=== PATIENT | female | born 1940 | race Caucasian/White ===

== ENCOUNTER 2024-06-21 14:48 | Inpatient (IN) | payer MEDICARE, SELFPAY ==
[2024-06-21] VITALS (8 sets, daily range): BP systolic 97–116; BP diastolic 61–75; BMI 19.3
--- NOTE | 2024-06-21 15:02 | HPS.HSE ---
Family Physician
-
Family Physician: Dago Short, DO
Chief Complaint
-
Short of breath
History of Present Illness
83-year-old with past medical history for chronic kidney disease, peripheral artery disease, abdominal aortic aneurysm, hypertension, anxiety was admitted at [facility] with acute hypoxic respiratory failure with new onset CHF as well as
tachycardia. Patient underwent cardiac cath with impression of severe ostial main and moderate to severe ostial right coronary artery disease as the culprit for patient's new onset cardiomyopathy recommended bypass surgery versus percutaneous
coronary intervention at an institution with cardiothoracic surgery backup. Echo with severe mitral regurgitation. At present patient feels much better. She is still on 2 L. Short of breath much improved. Patient denied any lower extremities
edema or weight gain. Patient denied any headache, dizziness, syncope. Patient denied chest pain. Patient denied fever chills, runny nose, congestion, cough. Patient denied any abdominal pain, nausea, vomiting, diarrhea. Patient denied dysuria
hematuria.
Medical History
Past Medical History
Past Medical History: Reports Other
Additional Past Medical History:
Hypertension
Anxiety
Peripheral artery disease
CKD
Abdominal aortic aneurysm
COPD
Past Surgical History: Reports Other
Additional Past Surgical History:
Cholecystectomy
Tonsillectomy
Social History
Tobacco: Former Smoker
Alcohol: Occasional
Drug: None
Personal: Single
Living: Alone
Family History
Family History: Not pertinent
Allergies / Home Medications
Allergies reflects when Allergies were last updated in [employer].
Home Medications with original date entered in [employer]
Allergy/Medication List:
nkda
Review of Systems
-
Constitutional: Reports No Symptoms
EENT: Reports No Symptoms
Respiratory: Reports Trouble Breathing
Cardiac: Reports No Symptoms
Abdomen/GI: Reports No Symptoms
: Reports No Symptoms
Musculoskeletal: Reports No Symptoms
Skin: Reports No Symptoms
Neurological: Reports No Symptoms
Endocrine: Reports No Symptoms
Hematologic/Lymphatic: Reports No Symptoms
Psych: Reports No Symptoms
Physical Exam
Physical Exam
General: Well Developed, Well Nourished and No Apparent Distress
HEENT: NormoCephalic, Moist mucous membranes and Atraumatic
Respiratory: Clear
Cardiac: S1/S2 and Regular Rhythm; No Murmur or Rub
GI: Soft, Non Tender, Non Distended and Normal Bowel Sounds; No Organomegaly
Rectal: Deferred by Provider
Musculoskeletal: No Clubbing, No Cyanosis and No Edema
Skin: No Rash
Neuro: AO x 3 and Nonfocal/grossly intact
Psych: Calm
Data Reviewed
-
Lab Data: Labs Reviewed by me
Impression/Plan
-
# Coronary artery disease/severe mitral regurgitation
cardiac cath with severe ostial main and moderate to severe ostial right coronary artery disease as the culprit for patient's new onset cardiomyopathy recommended bypass surgery versus percutaneous coronary intervention
-ECHo with left ventricular systolic function is severely reduced, left ventricular ejection fraction is 25%, grade 2 diastolic dysfunction, severe mitral regurgitation.
-CT surgeon consulted
-Aspirin continued
# Acute hypoxic respiratory failure likely from new onset cardiomyopathy
#new onset CHF
-Echo with EF of 25 percentage
-IV Lasix continued
-Strict PAUL
-Daily weight
-Fluid restriction
-Cardiology consult
# History of CKD
-Continue to monitor the labs
#History of anxiety
-Paxil and trazodone continued
-Wellbutrin continued
#Essential hypertension
-Losartan continued
#COPD
-Breo continued
Nebs as needed for short of breath and anxiety
#Tachycardia
-Obtain EKG
-Toprol XL 25 continued
#Hyperlipidemia
-Statin continued
#DVT prophylaxis
-Heparin subcu
#CODE STATUS
-Full code
--- NOTE | 2024-06-21 16:06 | W.PN.UPDATE ---
Update Note
Progress Note Update
This note serves as an addendum to the H&P by grades 1 6 tutor JAZ Svetlana YAÑEZ
HPI
83F No prior admission to HX CKD, PAD, AAA, HTN TF form [facility]
- Cardiac cath @ [facility] : found severe ostial main and moderate to severe ostial RCA culprit for new onset CM
- recommended CABG vs. PCI with CTS backup.
- Echo with severe mitral regurgitation.
- she was admitted at [facility] for acute Resp distress.
- HX COPD. Not on home O2
- on 2 L NC O2
- CP free
ROS:
denied any lower extremities edema or weight gain.
denied any headache, dizziness, syncope.
denied fever chills, runny nose, congestion, cough.
denied any abdominal pain, nausea, vomiting, diarrhea. Patient denied dysuria hematuria.
Vital Signs
Temp Resp Pulse Ox
98.3 F 16 98
06/21/24 15:23 06/21/24 15:23 06/21/24 15:23
PE
General: No Apparent Distress
HEENT: Moist mucous membranes and Atraumatic
Respiratory: Clear
Cardiac: S1/S2 and Regular Rhythm; No Murmur
GI: Soft, Non Tender, Non Distended and Normal Bowel Sounds
Rectal: Deferred by Provider
Musculoskeletal: No Clubbing, No Cyanosis and No Edema
Skin: No Rash
Neuro: AO x 3 and Nonfocal/grossly intact
Psych: Calm
Data
Lab pending for AM
per [facility] CC:
Severe ostial main and moderate to severe ostial right coronary artery disease as the culprit for patient's new onset cardiomyopathy recommended bypass surgery versus percutaneous coronary intervention
NO PRIOR or hospitalist admission:
ASSESSMENT & PLAN
CAD: severe ostial main and moderate to severe ostial RCA culprit for new onset CM
New onset CM : ECHO: LVEF 25%, grade 2 diastolic dysfunction, severe mitral regurgitation.
Severe mitral regurgitation
-CT surgeon consulted
-Aspirin continued
-IV Lasix continued
-Strict I &O
-Daily weight
-Fluid restriction
- CBC Cardiology consult
- CTS consulted
HX CKD
- Continue to monitor the labs
HX anxiety
-Paxil and trazodone continued
-Wellbutrin continued
Essential hypertension
-Losartan continued
COPD
- stable
- Breo continued
- Nebs as needed for short of breath and anxiety
Tachycardia
-Obtain EKG
-Toprol XL 25 continued
#Hyperlipidemia
-Statin continued
DVT prophylaxis: SQH
Full code
IVU
--- NOTE | 2024-06-21 16:39 | CONSULT.CT ---
Consultation
-
Performing Provider: Yoseph Villegas PA-C
Reason for Consultation: Multivessel CAD, Severe MR, New onset HFrEF
Patient History
History of Present Illness
Patient is an 83-year-old female with a past medical history of chronic kidney disease, COPD without oxygen dependence, hypertension, hyperlipidemia, rheumatoid arthritis, prior CVA approximately 3 years ago with no residual deficits, questionable
new onset diabetes who presented to [facility] with complaints of new onset significant dyspnea on exertion. She was evaluated in the emergency department. She was found to have new onset reduced ejection fraction of approximately 25%
on transthoracic echocardiogram. She was also noted to have severe central mitral regurgitation. Given this finding she underwent ischemic workup with cardiac catheterization. This revealed significant disease was moderate to coronary artery
disease. Given that this is likely the culprit of her new onset heart failure she was recommended for evaluation for possible CABG versus PCI. This prompted transfer to our facility for further evaluation.
Currently the patient is resting comfortably on 2 L of oxygen via nasal cannula. She is accompanied by her 2 daughters at bedside. She denies any prior history of bleeding or clotting disorders, chest radiation or chest surgery, vein stripping or
varicose veins, melena or hematochezia, dysphagia or need for prior esophageal dilation, prior heart history including arrhythmias. She has had rib fractures in the past. She is a prior tobacco user but quit in 1976. She drinks 4 to 5 glasses of
wine per week. She does not use illicit drugs. She lives alone however her 2 daughters are her neighbors. She does not use assist devices at home.
Past Medical History
Chronic kidney disease
COPD without oxygen dependence
New onset heart failure reduced EF
Coronary artery disease
Severe mitral regurgitation, likely functional
Hypertension
Hyperlipidemia
Questionable new onset diabetes (elevated blood glucose in the emergency department. A1c is pending)
Prior CVA without residual deficits
Rheumatoid arthritis on methotrexate
Past Surgical History
Cholecystectomy
Tonsillectomy
Social History
Alcohol: Occasional
Drug: None
Tobacco: Former Smoker (Quit in 1976)
Allergies
No known drug allergies
Home Medications
�Medication �Instructions �Recorded �Confirmed �Type
aspirin 81 mg chewable tablet 81 mg PO DAILY 06/21/24 06/21/24 History
atorvastatin 40 mg tablet (Lipitor) 40 mg PO HS 06/21/24 06/21/24 History
bupropion HCl 75 mg tablet 75 mg PO BID 06/21/24 06/21/24 History
fluticasone furoate 100 1 inh inhalation DAILY 06/21/24 06/21/24 History
mcg-vilanterol 25 mcg/dose
inhalation powder (Breo Ellipta)
furosemide 20 mg tablet (Lasix) 20 mg PO BID 06/21/24 06/21/24 History
losartan 25 mg tablet 12.5 mg PO BID 06/21/24 06/21/24 History
methotrexate 2.5 mg/mL oral 2.5 mg PO QWEEK 06/21/24 06/21/24 History
solution
metoprolol succinate 25 mg 25 mg PO BID 06/21/24 06/21/24 History
tablet,extended release 24 hr
(Toprol XL)
paroxetine HCl 30 mg tablet 30 mg PO DAILY 06/21/24 06/21/24 History
trazodone 100 mg tablet 100 mg PO HS 06/21/24 06/21/24 History
umeclidinium 62.5 mcg-vilanterol 1 inh inhalation DAILY 06/21/24 06/21/24 History
25 mcg/actuation powdr for
inhalation (Anoro Ellipta)
Review of Systems
-
History Source: Patient and Family
General: Reports Fatigue
HEENT: Reports No Symptoms
Respiratory: Reports SOB and REINOSO
Cardiac: Reports No Symptoms
Abdomen/GI: Reports No Symptoms
: Reports No Symptoms
Musculoskeletal: Reports No Symptoms
Skin: Reports No Symptoms
Neurological: Reports No Symptoms
Vascular: Reports No Symptoms
Physical Exam
Vital Signs
Temp 98.3 F 06/21/24 15:23
Temp route: Oral 06/21/24 15:23
Resp Rate 16 06/21/24 15:23
Blood pressure extremity used: Left upper arm 06/21/24 15:23
Position: Lying 06/21/24 15:23
SaO2 98 06/21/24 15:23
Nasal Cannula flow liters per minute 2 06/21/24 15:23
Exam
General: Well Developed, Well Nourished and No Apparent Distress
HEENT: Normocephalic and Anicteric
Neck: Trachea Midline
Respiratory: Clear
Cardiac: S1/S2 and Regular Rhythm
GI: Soft, Non Tender and Non Distended
Rectal: Deferred by Provider
Skin: Warm and Dry
Neuro: Awake and Alert
Psych: Calm
Assessment / Plan
-
1. Multivessel coronary artery disease with left main component: The patient will be evaluated for possible CABG as the definitive revascularization strategy. Given her advanced age and comorbidities she may be high risk. The patient and her
daughter's seem hesitant to undergo formal surgical evaluation at this time. Will discuss the case with Dr. Christopher Duval who will provide definitive recommendations in regards to her surgical candidacy and timing. She will also be evaluated by her
interventional cardiology colleagues to determine whether or not high risk PCI of her left main is an option. This may require Impella support and therefore CT surgery would need to be on backup. We will hold off on open heart surgery workup at
this time until treatment modality is determined. I briefly discussed perioperative expectations with the patient and her family and answered her questions to her satisfaction. Recommend cardiology consultation for further medical management.
Unfortunately she was not transferred with a disc containing her cardiac cath films. We will need to obtain these films to evaluate treatment options.
2. Severe central mitral regurgitation, likely functional
3. New onset heart failure reduced EF: Recommend cardiology consultation
4. COPD, not oxygen dependent
5. Chronic kidney disease
6. Questionable new onset diabetes
7. Hypertension
8. Hyperlipidemia
9. Rheumatoid arthritis on methotrexate
10. Prior CVA 3 years ago without residual deficits
Data Reviewed
-
Channel Specialist: Report Reviewed by me
Echo: Report Reviewed by me
Radiology: Report Reviewed by me
Labs: Labs Reviewed by me
Old Records: Requested and Reviewed
Total Time Spent with Patient (in minutes): 60
[2024-06-21] MEDS: LASIX 20 MG IV (17:48)
--- NOTE | 2024-06-21 18:31 | PTCARENOTE ---
received pt from [facility], aaox3, vss. pt was educated on plan of care and pt verbalized understanding. call preston within reach.
[2024-06-21] MEDS: SYMBICORT 80/4.5 MCG INHALER 2 PUFF INH (19:42)
--- NOTE | 2024-06-21 21:09 | PTCARENOTE ---
Received patient at change of shift. Patient resting in bed, awake, alert, and oriented. BP 109/65, NSR 75, 99% on 2L. Denies SOB or chest discomfort. Pressures soft-- discussed with Ed Wilmer CV PA-- cardiac meds adjusted for evening-- see SEP.
Discussed plan of care with patient. Agrees to call with getting out of bed or worsening SOB. Call preston within reach.
[2024-06-21] MEDS: TOPROL XL 12.5 MG PO (21:17)
[2024-06-21] MEDS: WELLBUTRIN REGULAR RELEASE 75 MG PO (21:17)
[2024-06-21] MEDS: COZAAR PO (21:47)
[2024-06-21] MEDS: TOPROL XL PO (21:47)
[2024-06-21] MEDS: LIPITOR 40 MG PO (22:40)
[2024-06-21] MEDS: DESYREL 100 MG PO (22:40)
[2024-06-22] VITALS (10 sets, daily range): BP systolic 96–119; BP diastolic 49–82; BMI 19.1
[2024-06-22 04:01] LABS: Hematocrit 34.3 % (37.0-47.0); Hemoglobin 10.3 g/dL (12.0-16.0); Mean Corpuscular Hgb 30.4 pg (27.0-31.0); Mean Corpuscular Volume 101.2 fL (81.0-99.0); Mean Platelet Volume 10.7 fL (7.4-10.4); Platelet Count 282 10^3/uL (130-400); Red Blood Cell Count 3.39 10^6/uL (4.20-5.40); Red Cell Dist. Width 14.2 % (11.5-14.5); White Blood Cell Count 10.1 10^3/uL (4.8-10.8)
[2024-06-22 04:18] LABS: Blood Urea Nitrogen 51 mg/dl (7-17); Calcium 8.8 mg/dl (8.4-10.2); Carbon Dioxide 34 mmol/L (22-30); Chloride 99 mmol/L (98-107); Glucose 106 mg/dl (70-99); Magnesium 2.2 mg/dl (1.6-2.3); Potassium 4.3 mmol/L (3.5-5.1); Sodium 140 mmol/L (135-145); eGFR 23.09
[2024-06-22] MEDS: SYMBICORT 80/4.5 MCG INHALER 2 PUFF INH ×2 (07:56→19:15)
[2024-06-22] MEDS: WELLBUTRIN REGULAR RELEASE 75 MG PO ×2 (08:21→20:37)
[2024-06-22] MEDS: TOPROL XL 25 MG PO ×2 (08:21→20:37)
[2024-06-22] MEDS: LOW STRENGTH ASPIRIN 81 MG PO (08:22)
[2024-06-22] MEDS: COZAAR 12.5 MG PO ×2 (08:22→20:38)
[2024-06-22] MEDS: LASIX 20 MG IV ×2 (08:22→16:49)
[2024-06-22] MEDS: PAXIL 30 MG PO (08:22)
--- NOTE | 2024-06-22 09:13 | PTCARENOTE ---
Assumed care at 0700. Patient awake and alert siting on side of bed. Room air POX 86%, placed on 2 liters NC 96%, lungs CTA. SR on telemetry, denies pain, call preston in reach
--- NOTE | 2024-06-22 11:57 | CON.CAR ---
Consultation
Consultation Request
Date/Time Consultation Requested: 06/22/24
Date/Time Consultation Performed: 06/22/24
Requesting Provider: Dr. Christopher Duval
Performing Provider: Dr. Cedrick Nieto
Reason for Consultation: NSTEMI, severe MR
Medical History
-
Chief Complaint: shortness of breath
History of Present Illness:
83 year old woman with history of CKD (Cr. 2), COPD not on O2, HTN, HLD, RA, CVA w/o residual deficits, ?DM, who presented to [facility] with acute dyspnea. She noted that the night of admission she developed acute onset dyspnea, worse with lying
flat, that did not improve. She denied chest pain/pressure, NV, REBEL. She presented to ED where workup was notable for elevated troponin, TTE with EF 25% and severe central MR, NM lung perfusion with possible PE but LE Dopplers negative. Cardiac
cath was performed and demonstrate low/normal filling pressures, CI 1.7, with severe ostial LM stenosis and moderate ostial RCA stenosis. She was started on GDMT for heart failure. She was transferred to for consideration of high risk MVR/CABG
vs. PCI. She was seen by CT Surgery and felt to be at very high risk for surgery.
Currently the patient is resting comfortably with daughter at bedside. She denies any prior history of bleeding or clotting disorders, chest radiation or chest surgery, melena or hematochezia, dysphagia or need for prior esophageal dilation, prior
heart history including arrhythmias. She is a prior tobacco user but quit in 1976. She drinks 4 to 5 glasses of wine per week. She does not use illicit drugs. She lives alone however her 2 daughters are her neighbors.
Allergies / Home Medications
Allergy/AdvReac Type Severity Reaction Status Date / Time
No Known Allergies Allergy Unverified 06/21/24 16:40
�Medication �Instructions �Recorded �Confirmed �Type
aspirin 81 mg chewable tablet 81 mg PO DAILY Blood Clot 06/21/24 06/21/24 History
Prevention/Tx
atorvastatin 40 mg tablet (Lipitor) 40 mg PO HS High Cholesterol 06/21/24 06/21/24 History
bupropion HCl 75 mg tablet 75 mg PO BID depression/anxiety 06/21/24 06/21/24 History
fluticasone furoate 100 1 inh inhalation DAILY 06/21/24 06/21/24 History
mcg-vilanterol 25 mcg/dose Lung/Breathing Issues
inhalation powder (Breo Ellipta)
furosemide 20 mg tablet (Lasix) 20 mg PO BID Fluid 06/21/24 06/21/24 History
Retention/Swelling
losartan 25 mg tablet 12.5 mg PO BID Blood Pressure 06/21/24 06/21/24 History
methotrexate 2.5 mg/mL oral 2.5 mg PO QWEEK Autoimmune Disorder 06/21/24 06/21/24 History
solution
metoprolol succinate 25 mg 25 mg PO BID Blood Pressure 06/21/24 06/21/24 History
tablet,extended release 24 hr
(Toprol XL)
paroxetine HCl 30 mg tablet 30 mg PO DAILY depression/anxiety 06/21/24 06/21/24 History
trazodone 100 mg tablet 100 mg PO HS sleep 06/21/24 06/21/24 History
umeclidinium 62.5 mcg-vilanterol 1 inh inhalation DAILY 06/21/24 06/21/24 History
25 mcg/actuation powdr for Lung/Breathing Issues
inhalation (Anoro Ellipta)
Physical Exam
Vital Signs
Temp Pulse Resp BP Pulse Ox
36.6 C 83 20 113/65 93
06/22/24 11:00 06/22/24 08:00 06/22/24 11:00 06/22/24 07:21 06/22/24 11:00
Lab Results
06/22/24 03:22
06/22/24 03:22
Physical Exam
General: Other (frail)
Respiratory: Clear
Cardiac: S1/S2 and Regular Rhythm
Skin: Warm and Other (2+ R radial pulse)
Psych: Calm
Impression / Plan
-
This is a 83 year old woman with CKD, COPD, HTN, HLD, ?DM, RA, prior CVA, who presented with new heart failure, severely reduced EF with severe MR, and NSTEMI, found to have severe ostial LM disease and moderate ostial RCA disease. Her presentation
seems most consistent with progressive LV dysfunction and ischemic MR secondary to coronary artery disease. The time frame seems acute given rapid symptom progression and lack of significant LV dilation or thinning. Filling pressures during R/L
heart catheterization were normal and she examines compensated and comfortable. She would be very high risk for open heart surgery given age, frailty, and comorbidities. I reviewed her TTE and cath images personally. Percutaneous revascularization
of the ostial LM and ostial RCA are low-moderate complexity. Despite the LM location and low EF, PCI can likely be accomplished without Impella support given lack of need for prolonged flow occlusion, her current compensated state, and only moderate
right sided disease. I would perform RHC up front to help guide intraprocedural decision making. It is possible that I will elect to stage the RCA given her CKD if concerned about contrast usage. After revascularization, she would be managed with
GDMT and repeat TTE performed at a later date to reassess the MR severity and EF recovery. Based on her TTE images, there is no obvious anatomic contraindication to AKIN, and her MR appears to be a combination of Type 1 due to ischemia and Type III
due to leaflet thickening/MAC. If her MR remained severe despite revascularization and GDMT, PAULINE would be needed at a later date to assess anatomic suitability for AKIN.
I spoke to the patient and daughter and we discussed the risks and benefits of cardiac catheterization and PCI, and the plan for post-revascularization medical management for heart failure and possible future consideration of intervention for her
MR. I quoted a likely 1-3% risk of life threatening complication for her PCI, up to 5% if Impella support is needed. We will arrange for OR back up in the event on a catastrophic complication necessitating surgical rescue.
Other plans:
- continue ASA, statin, metop, and losartan at current doses; further GDMT titration post-PCI
- hold further diuresis
- trend CBC and CMP, order T&S
- check lipids and A1c
- obtain CXR and EKG
Data Reviewed
-
Medical Tests (Nuc Med, Echo etc): Image Personally Visualized and interpreted, Report Reviewed by me, Discussed with Physician and Discussed with Patient
Labs: Labs Reviewed by me
Total Time Spent with Patient (in minutes): 60
--- NOTE | 2024-06-22 13:49 | PTCARENOTE ---
Patient comfortable in chair, weaned to room air 93%, family at bedside
--- NOTE | 2024-06-22 14:47 | W.PN.HOSP.TC ---
Today's Communication/Plan
-
Assessment / Plan
Assessment / Plan
Physical Exam
NAD, resting comfortably in bed, tgemporal wasting, atrophic muscle
Scleral anicteric
Moist mucous membranes
No JVD
CTA bilateral
Normal S1-S2 ELYSIA grade 2/6 with radiation in the axilla
Soft nontender nondistended bowel sounds active
No peripheral pitting edema
Moves extremities spontaneously
AAOx3
MVCAD with Severe MR
HFrEF, acute on chronic, EF 25%, nyha class III-IV
ARF with Hypoxia
CKD stage IV
HTN
Anxiety
COPD
HLD
CTsurgery eval
[facility]
Family dicussion about next steps and best approach
Asa
Hold IV diuretics
BB-long acting
Difficult to start ARB/ARNI/MRA/SLT2i due to renal function
Monitor UOP
Daily weight
Keep K >4
Keep Mg >2
Check lipids and A1c
If planned for high risk PCI with Impella support may need to get nephrology on board and have a discussion about HD need post intervention/near future due to contrast laod
Anticipated Discharge: > 48 hours
Subjective/Interval History
-
Date of Service: June 22, 2024
seen and exained. no new compalints. sitting in bedside chair
family at bedisde
Objective Data
-
Labs:
Laboratory Results
06/22/24
03:22
WBC 10.1
Hgb 10.3 L
Hct 34.3 L
Plt Count 282
Sodium 140
Potassium 4.3
Chloride 99
Carbon Dioxide 34 H
BUN 51 H
Creatinine 2.1 H
Glucose 106 H
Calcium 8.8
Vital Signs:
Vital Signs
Temp Pulse Resp BP Pulse Ox
97.8 F 83 20 103/58 93
06/22/24 11:00 06/22/24 12:30 06/22/24 11:00 06/22/24 11:02 06/22/24 11:00
I&O
06/21/24 06/22/24 06/23/24
06:59 06:59 06:59
Intake Total 480 / 480
Balance 480 / 480
--- NOTE | 2024-06-22 21:19 | PTCARENOTE ---
Received patient at change of shift. Patient resting in bed, awake, alert, and oriented. Denies SOB, CP. BP 107/49, NSR 80s, 94% on room air. Discussed plan of care. Patient verbalized understanding and agreed to call nurse when getting out of bed.
Call preston within reach.
[2024-06-22] MEDS: LIPITOR 40 MG PO (22:39)
[2024-06-22] MEDS: DESYREL 100 MG PO (22:39)
[2024-06-23] VITALS (7 sets, daily range): BP systolic 93–129; BP diastolic 70–78; BMI 18.9
[2024-06-23 04:56] LABS: % Basophils 0.7 % (0-2); % Eosinophils 4.7 % (0-6); % Immature Granulocytes 0.6 % (0-0.5); Absolute Basophils 0.1 10^3/uL (0-0.2); Absolute Eosinophils 0.6 10^3/uL (0-0.7); Absolute Immature Granulocytes 0.1 10^3/uL (0-0.05); Absolute Lymphocytes 1.2 10^3/uL (1.2-3.4); Hematocrit 34.7 % (37.0-47.0); Hemoglobin 11.2 g/dL (12.0-16.0); Mean Corp Hgb Conc. 32.3 g/dL (33.0-37.0); Mean Corpuscular Hgb 31.4 pg (27.0-31.0); Mean Corpuscular Volume 97.2 fL (81.0-99.0); Mean Platelet Volume 10.8 fL (7.4-10.4); Nucleated Red Blood Cells % 0 %; Platelet Count 310 10^3/uL (130-400); Red Blood Cell Count 3.57 10^6/uL (4.20-5.40); White Blood Cell Count 11.9 10^3/uL (4.8-10.8)
[2024-06-23] MEDS: SYMBICORT 80/4.5 MCG INHALER 2 PUFF INH ×2 (07:20→19:17)
[2024-06-23] MEDS: PAXIL 30 MG PO (07:51)
[2024-06-23] MEDS: LOW STRENGTH ASPIRIN 81 MG PO (07:51)
[2024-06-23] MEDS: WELLBUTRIN REGULAR RELEASE 75 MG PO ×2 (07:51→19:31)
[2024-06-23] MEDS: TOPROL XL 25 MG PO ×2 (07:55→19:31)
[2024-06-23 08:56] LABS: ACT-LR - POC 224 Seconds (116-155)
[2024-06-23 09:03] LABS: ACT-LR - POC 227 Seconds (116-155)
[2024-06-23 09:11] LABS: ACT-LR - POC 279 Seconds (116-155)
--- NOTE | 2024-06-23 09:41 | PTCARENOTE ---
report cath pt left for labeling associate [id number].
[2024-06-23 09:58] LABS: Glycohemoglobin (HgbA1c) 5.6 % (4.0-5.6)
[2024-06-23 10:04] LABS: ACT-LR - POC 376 Seconds (116-155)
--- NOTE | 2024-06-23 10:45 | ITS.CL.PN ---
Fire Dispatcher - Procedure Note
Procedure
Procedure Note:
CARDIAC CATHETERIZATION REPORT
Date of Procedure: 06/23/2024
Referring: Dr. Christopher Duval
Indication: NSTEMI, severe LM disease, acute systolic heart failure
PROCEDURE:
1. Right heart catheterization
2. Left heart catheterization
3. Coronary angiography
4. IVUS LM
5. PCI with TASIA of LM
ACCESS:
6 [place] right radial artery (TR band)
5 [place] right antecubital vein (manual pressure)
CATHETERS:
1. 5 [place] balloon wedge
2. 6 [place] JL3.5 guide
3. 6 [place] JR4 guide
HEMODYNAMIC DATA
AO 113/61 (mean 78) mmHg
LV 114/5 (EDP 9) mmHg
RA 2 mmHg
RV 28/-1 (EDP 4) mmHg
PCWP 16 mmHg
PA 45/19 (mean 30) mmHg
SaO2 100%
SvO2 62.6%
CO/CI 3.6/2.4
PVR 3.9 Wood Units
SVR 799 dsc*-5
CORONARY ANGIOGRAPHY
Dominance: right
LM: large vessel with a 80% ostial to proximal stenosis
LAD: large vessel with mild proximal calcific disease and mild disease otherwise
LCx: large vessel with luminal irregularities only
RCA: moderate caliber vessel giving rise to a small RPDA and moderate caliber RPL system. There is severe ostial disease evidenced by complete pressure dampening on engagement with lack of contrast reflux
INTERVENTION - IVUS-guided PCI with TASIA to the left main
Based on RHC demonstrating low filling pressures, 250 cc IVF was given. Heparin was used to achieve ACT>300. The left main was engaged with a JL3.5 guide catheter with care taken to avoid deep vessel engagement and pressure dampening. Runthrough
wires were placed in the distal LCx and distal LAD. IVUS was performed demonstrating severe non-calcific disease with a distal reference vessel diameter of 4.0 mm. Initial lesion preparation was performed with a 3.0x12 mm balloon with full
expansion. Pressure was noted to drop during and after inflation but recovery quickly, suggesting that the patient would be able to tolerate stent delivery and any necessary post-dilation without mechanical support. The 3.0x12 mm balloon as also
used to check proximal and distal stent positioning, and demonstrating that a 15 mm stent would be ideal to cover the entire lesion back to the ostium without entering the LAD. A 4.0x15 mm Tarpley Saucier TASIA was selected and deployed at 12 park with
full expansion. IVUS was performed and demonstrated mild undersizing of the distal stent, mild under-expansion of the mid-stent, and undersizing of the aorto-ostial proximal stent edge without evidence of significant protrusion into the aorta.
Post-dilation was performed with a 4.5x12 mm NC balloon to 18 park throughout, followed by a 5.0x12 mm NC balloon to 18 park to flare the ostium. Final IVUS demonstrated excellent stent apposition and expansion. Final angiography demonstrate and
outstanding result. The wire and guide were removed and and RCA angiography performed with a JR4 guide with plan to perform iFR of the proximal/ostial RCA. However, there was severe dampening on catheter engagement, suggesting that the lesion is
clearly severe so iFR was not performed. The RCA was deferred given the patient's CKD and contrast usage. The guide was removed and a TR band placed. The patient was loaded with 180 mg Ticagrelor and family updated.
RADIATION:
Radiation dose (mGy): 503
DAP (cm2.Gy): 45
Fluoroscopy time (minutes): 19.8
CONCLUSIONS:
1. 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
2. Left heart catheterization with normal LV filling pressure and no aortic stenosis.
3. Coronary angiography demonstrates high grade ostial-proximal left main disease with non-obstructive disease in the remainder of the left coronary system and severe ostial RCA disease evidenced by severe catheter dampening on engagement.
4. Successful IVUS-guided and optimized PCI of the left main with placement of a 4.0x15 mm Tarpley Saucier TASIA post-dilated to high pressure with a 4.5 mm NC balloon throughout and 5.0 mm NC balloon ostially.
RECOMMENDATIONS:
1. Expectant management after cardiac catheterization via right approach.
2. Post-cath fluid resuscitation with 500 cc IVF.
3. DAPT with ASA/ticagrelor for 1 year.
4. GDMT for HFrEF
5. PRN diuresis
6. Given severe ostial RCA disease and CKD, will stage intervention for either this admission or outpatient pending course.
7. Will need re-evaluation of LVEF and mitral regurgitation after 3 months of revasc and optimal medical therapy
Copy to: Darek Cardoso MD (referring corsets salesperson); Dago Short DO (primary care physician)
Signed: Cedrick Nieto MD, PhD
--- NOTE | 2024-06-23 11:28 | W.PN.HOSP.TC ---
Today's Communication/Plan
-
- follow up cardiology
Assessment / Plan
Assessment / Plan
CVD post op day 1 for PCI of left main artery:
- Cath shows severe ostial LM stenosis and moderate ostial RCA stenosis
- Continue on DAPT with aspirin and ticagrelor
- Continue on atorvastatin
- Continue metoprolol
- Hold off on IV diuretics due to kidney function
- Trend Bmp and CBC
- PT/OT
- Folow up with cardiology about RCA
New onset heart failure reduced EF:
- EF of 25%
- Continue on metoprolol, losartan
- Follow daily weight, I's and O's, fluid restriction, 2 g sodium diet
- Trend creatinine
- Keep K more than 4 and magnesium more than 2
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
- Continue symbicort
- Maintain oxygen between 88-92
- Advise patient to use incentive spirometer
Normocytic anaemia:
- hgb 11.2
- continue to trend
CKD stage IV:
- bmp still pending
Constipation:
- has not had a bowel movement for a couple of days
- Currently on Dulcolax, senna, miralax
Hypertension:
- Continue Losartan
Hyperlipidemia:
- Continue atorvastatin
Depression:
- Continue Paxil, bupropion, and trazodone
Rheumatoid arthritis on methotrexate?
Anticipated Discharge: 24 - 48 hours
Subjective/Interval History
-
Date of Service: June 23, 2024
Patient is an 83-year-old female postoperative day 1 from having a stent placed in the left anterior descending artery. Who was admitted at [facility] with complaints of new onset dyspnea on exertion, they did a transthoracic
echocardiogram and found ejection fraction of 25%, she then underwent an cath which showed severe central regurgitation, right coronary stenosis and severe left main disease. He was recommended for possible CABG versus PCI and then was transferred
to [facility].
Objective Data
-
Labs:
Laboratory Results
06/23/24 06/23/24
04:15 05:53
WBC 11.9 H
Hgb 11.2 L
Hct 34.7 L
Plt Count 310
Sodium Cancelled Pending
Potassium Cancelled Pending
Chloride Cancelled Pending
Carbon Dioxide Cancelled Pending
BUN Cancelled Pending
Creatinine Cancelled Pending
Glucose Cancelled Pending
Calcium Cancelled Pending
Total Bilirubin Cancelled Pending
AST Cancelled Pending
ALT Cancelled Pending
Alkaline Phosphatase Cancelled Pending
Vital Signs:
Vital Signs
Temp Pulse Resp BP Pulse Ox
98.4 F 81 16 112/72 93
06/23/24 04:18 06/23/24 07:55 06/23/24 07:22 06/23/24 07:55 06/23/24 07:22
I&O
06/22/24 06/23/24 06/24/24
06:59 06:59 06:59
Intake Total 480 / 480
Balance 480 / 480
Review of Systems
-
Constitutional: Denies Fever or Fatigue
EENT: Denies Blurry Vision
Respiratory: Denies Cough
Cardiac: Reports Chest Pain; Denies Palpitations or Syncope
Abdomen/GI: Denies Abdominal Pain, Nausea, Vomiting, Diarrhea or Constipated
Musculoskeletal: Reports Joint Pain
Physical Exam
-
Respiratory: Decreased Breath Sounds (b/l)
GI: Soft and Nontender
Musculoskeletal: Edema, Right Lower Extrem and Edema, Left Lower Extrem
Neuro: Awake and Alert
Data Reviewed
-
Medical Tests (Nuc Med, Echo etc): Image personally visualized and interpreted and Discussed with Physician
Labs: Labs Reviewed by me and Discussed with Physician
--- NOTE | 2024-06-23 11:30 | PTCARENOTE ---
pt back from airport maintenance laborer. right brachial site cdi, right radial band in place cdi. pt is sr on the monitor, hr in the 70s, vss. pt offers no complaints at this time. pt educated on plan of care and pt verbalized understanding. daughter at bedside.
call preston within reach.
--- NOTE | 2024-06-23 12:10 | W.PN.CD ---
Today's Communication / Plan
-
cont. current doses of GDMT
DAPT with asa/ticag
monitor renal function, volume status
possible discharge tomorrow with outpatient GDMT titration and RCA intervention
Impression / Plan
-
This is a 83 year old woman with CKD, COPD, HTN, HLD, ?DM, RA, prior CVA, who presented with new heart failure, severely reduced EF with severe MR, and NSTEMI, found to have severe ostial LM disease and moderate ostial RCA disease. Now status post
PCI to the LM 06/23/24.
# CAD s/p LM PCI
- ticag/asa for 1 year
- high intensity statin for goal LDL<55
- metop
- post cath fluids for normal filling pressures to prevent contrast induced AMBROSE, will trend renal function closely
- stabed revasc of ostial RCA either this admissino or as outpatient
# HFrEF
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
- cont. metop/losartan at current doses today, will titrate GDMT as tolerate and pending Cr stability
# severe MR
- central, likely combination fo type III and type I
- will repeat TTE after 3 months of GDMT/revasc and consider AKIN workup if still severe/symptomatic
Subjective: feeling well post-PCI; family updated
Physical Exam
Vital Signs/Labs
Vital Signs
Temp Pulse Resp BP Pulse Ox
36.9 C 81 16 112/72 93
06/23/24 04:18 06/23/24 07:55 06/23/24 07:22 06/23/24 07:55 06/23/24 07:22
06/22/24 06/23/24 06/24/24
06:59 06:59 06:59
Actual Weight 50.4 kg
06/23/24 04:15
Magnesium 2.2 mg/dl (1.6-2.3) 06/22/24 03:22
Triglycerides Cancelled 06/23/24 04:15
LDL Cholesterol, Calc Cancelled 06/23/24 04:15
VLDL Cholesterol, Calc Cancelled 06/23/24 04:15
HDL Cholesterol Cancelled 06/23/24 04:15
Physical Exam
Constitutional: No acute distress
Cardiovascular: Rhythm & rate is regular
Respiratory: Respiratory effort normal
Neuro/Psych: AO x 3
Data Reviewed
-
Date of Service: June 23, 2024
Medical Decision Making: Reviewed Test Results
Labs: Labs Reviewed by me
[2024-06-23] MEDS: NSS 1000 IV (12:37)
[2024-06-23] MEDS: COZAAR PO (12:37)
[2024-06-23] MEDS: LASIX IV (12:45)
--- NOTE | 2024-06-23 13:32 | W.PN.UPDATE ---
Update Note
Progress Note Update
I saw and evaluated the patient. I reviewed the resident�s note and agree with findings and plan as documented in the resident�s note.
Currently denies chest pain or shortness of breath
Gen: NAD, AAOx3, appears chronically ill.
Eyes: EOMI, PERRLA, no scleral icterus.
Neck: supple.
CV: RRR, +S1/S2, no m/r/g.
Resp: CTAB, no rales, wheezes, or rhonchi.
Abd: +BS, soft, NT, ND
Skin: No rashes.
Neuro: CN 2-12 intact, non-focal.
Psych: Normal mood and affect.
CXR: No acute cardiopulmonary process.
CAD/NSTEMI:
-transferred from [facility] s/p cardiac cath with severe ostial LM and moderate to severe ostial RCA culprit for new onset HFrEF (EF 25%) for consideration of high risk MVR/CABG vs PCI
-seen by CT surgery, too high risk for CABG
-cath today with single stent to LM
-case discussed with cardiology. Plan is for stenting to the RCA on June 26, 2024 versus discharge tomorrow with RCA stenting at a later date.
-cont ASA/statin/BB/ARB/Brilinta
Other problems:
CKD4, baseline Cr around 2
COPD, not on O2 at baseline
Essential HTN: cont BB/ARB
HLD: cont statin
RA
h/o CVA: cont statin/ASA, now on Brilinta
Total time spent on today's encounter was 50 minutes which included time spent in counseling the patient/family regarding diagnosis and treatment plan as listed above, goals of care, and symptom management. Case was discussed with nursing staff,
specialists, and care coordinators/case management. All labs and imaging personally reviewed by me. Remainder the time spent in detailed review of previous records, lab data, imaging, and other medical provider documentation.
--- NOTE | 2024-06-23 13:56 | CM ---
Reviewed chart. Met with Mrs. Lux and here daughter to review discharge plans. She states prior to admission she resides alone. She states her one daughter resides next door and the other daughter resides across the street. She states she is
planning on staying with her daughter across the street when she goes home. Her daughter resides in a two story home with two steps to enter. Her daughter has a bedroom/bathroom on the first floor where Mrs. Lux will stay. She states prior to
admission she was independent with ambulation and adls. She states she does not have any DME in the home. She states she has a prescription plan and uses [facility]. Telephone call to [employer], to check on co-pay for Brilinta
90 mg po bid. Her co-pay would be $113.00 a month. She can use the one month free coupon. Placed the one month free coupon in her red discharge folder. Reviewed co-pay with Mrs. Lux and daughter the co-pay and they are agreeable to the co-pay.
[facility] does not have it in stock and would need to be ordered. Medical work-up in progress. The discharge plan is to return home with her daughter when medically stable.
[2024-06-23] MEDS: BRILINTA 90 MG PO (19:31)
[2024-06-23] MEDS: COZAAR 12.5 MG PO (19:32)
[2024-06-23] MEDS: DESYREL 100 MG PO (23:29)
[2024-06-23] MEDS: LIPITOR 40 MG PO (23:29)
--- NOTE | 2024-06-23 23:49 | PTCARENOTE ---
Rec'd pt at change of shift. Pt in NSR, VSS, and AAO*3. Pt denies any pain or discomfort. Pt with R radial and brachial site dressings CDI. Pt agreed to limb restrictions. Pt agree to call for staff assistance before ambulating and now resting
with call preston in reach. Plan of care ongoing.
[2024-06-24 04:12] VITALS: BP 117/68
[2024-06-24 04:27] VITALS: BMI 19.2
[2024-06-24 04:40] LABS: Hematocrit 33.4 % (37.0-47.0); Hemoglobin 10.3 g/dL (12.0-16.0); Mean Corp Hgb Conc. 30.8 g/dL (33.0-37.0); Mean Corpuscular Hgb 30.9 pg (27.0-31.0); Mean Corpuscular Volume 100.3 fL (81.0-99.0); Mean Platelet Volume 10.4 fL (7.4-10.4); Platelet Count 254 10^3/uL (130-400); Red Blood Cell Count 3.33 10^6/uL (4.20-5.40); Red Cell Dist. Width 14.1 % (11.5-14.5); White Blood Cell Count 11.2 10^3/uL (4.8-10.8)
[2024-06-24 05:10] LABS: Blood Urea Nitrogen 45 mg/dl (7-17); Carbon Dioxide 29 mmol/L (22-30); Chloride 103 mmol/L (98-107); Estimated Creatinine Clearance 18 ml/min; Glucose 108 mg/dl (70-99); Potassium 4.3 mmol/L (3.5-5.1); Sodium 139 mmol/L (135-145); eGFR 26.04
[2024-06-24 07:23] VITALS: BP 96/57
[2024-06-24] MEDS: SYMBICORT 80/4.5 MCG INHALER 2 PUFF INH (07:52)
[2024-06-24] MEDS: COZAAR PO (08:13)
[2024-06-24] MEDS: TOPROL XL PO (08:14)
[2024-06-24] MEDS: WELLBUTRIN REGULAR RELEASE 75 MG PO (08:36)
[2024-06-24] MEDS: PAXIL 30 MG PO (08:36)
[2024-06-24] MEDS: LOW STRENGTH ASPIRIN 81 MG PO (08:36)
[2024-06-24] MEDS: BRILINTA 90 MG PO (08:36)
[2024-06-24 08:47] LABS: ACT-LR - POC > 397 Seconds (116-155)
--- NOTE | 2024-06-24 09:23 | W.PN.UPDATE ---
Addendum entered and electronically signed by Jan Bedoya MD 06/24/24 13:52:
Total time spent on d/c = 40 min. This included today's physical exam, progress note, review of laboratory and diagnostic data, preparation of discharge documents and prescriptions, and discussions about the pt's hospital course and discharge plan
with the patient and other medical pathology teacher involved in the patient's care.
Addendum entered and electronically signed by Jan Bedoya MD 06/24/24 13:39:
Acute HFrEF
Original Note:
Update Note
Progress Note Update
I saw and evaluated the patient. I reviewed the resident�s note and agree with findings and plan as documented in the resident�s note.
Currently denies chest pain or shortness of breath.
Gen: NAD, AAOx3, appears chronically ill.
Eyes: EOMI, PERRLA, no scleral icterus.
Neck: supple.
CV: remains RRR, +S1/S2, no m/r/g.
Resp: remains CTAB, no rales, wheezes, or rhonchi.
Abd: remains +BS, soft, NT, ND
Skin: No rashes.
Neuro: CN 2-12 intact, non-focal.
Psych: Normal mood and affect.
CXR: No acute cardiopulmonary process.
CAD/NSTEMI:
-transferred from [facility] s/p cardiac cath with severe ostial LM and moderate to severe ostial RCA culprit for new onset HFrEF (EF 25%) for consideration of high risk MVR/CABG vs PCI
-seen by CT surgery, too high risk for CABG
-cath 06/23/24 with single stent to LM
-case discussed with cardiology, can discharge today with RCA stenting at a later date.
-cont ASA/statin/BB/ARB/Brilinta
Other problems:
CKD4, baseline Cr around 2
COPD, not on O2 at baseline
Essential HTN: cont BB/ARB
HLD: cont statin
RA
h/o CVA: cont statin/ASA, now on Brilinta
Medically cleared for discharge.
--- NOTE | 2024-06-24 10:44 | PN.CDI ---
CDI
- -
CDI:
Physician Documentation Request
Admit Date: 06/21/24 14:48
Dear Doctor Tigist,
Patient admitted with CAD.
06/21 H&P: 'new onset CHF -Echo with EF of 25 percentage -IV Lasix continued'
06/23 Hospitalist PN: 'New onset heart failure reduced EF:
- EF of 25%
- Continue on metoprolol, losartan
- Follow daily weight, I's and O's, fluid restriction, 2 g sodium diet'
Clarify which of the following accurately represents the acuity of the HFrEF. Possible options might include:
____ Acute
____ Chronic stable condition
____ Other
Use of terms such as suspected, likely, concern for, or probable (associated with a specific diagnosis that is being evaluated, monitored, or treated as if it exists) are acceptable and can be coded in the inpatient setting, when documented at the
time of discharge.
Thank you,
Mary Lou Paniagua RN, BSN
CDI Specialist
Available via [employer] text
Please use your independent medical judgment in providing your response.
--- NOTE | 2024-06-24 10:54 | W.PN.HOSP.TC ---
Today's Communication/Plan
-
- discharge patient
Assessment / Plan
Assessment / Plan
CVD post op day 2 for PCI of left main artery:
- Pt will follow up for ultrasound outpatient and outpatient RCS stent per cardiology
- Cath shows severe ostial LM stenosis and moderate ostial RCA stenosis
- Continue on DAPT with aspirin and ticagrelor
- Continue on atorvastatin
- Continue metoprolol
- Hold off on IV diuretics due to kidney function
- Trend Bmp and CBC
- PT/OT
New onset heart failure reduced EF:
- EF of 25%
- Continue on metoprolol, losartan
- Follow daily weight, I's and O's, fluid restriction, 2 g sodium diet
- Trend creatinine
- Keep K more than 4 and magnesium more than 2
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
- Continue symbicort
- Maintain oxygen between 88-92
- Advise patient to use incentive spirometer
Normocytic anaemia:
- hgb 11.2
- continue to trend
CKD stage IV:
- bmp still pending
Constipation:
- has not had a bowel movement for a couple of days
- Currently on Dulcolax, senna, miralax
Hypertension:
- Continue Losartan
Hyperlipidemia:
- Continue atorvastatin
Depression:
- Continue Paxil, bupropion, and trazodone
Rheumatoid arthritis on methotrexate?
Anticipated Discharge: Today
Subjective/Interval History
-
Date of Service: June 24, 2024
Objective Data
-
Labs:
Laboratory Results
06/24/24
04:22
WBC 11.2 H
Hgb 10.3 L
Hct 33.4 L
Plt Count 254
Sodium 139
Potassium 4.3
Chloride 103
Carbon Dioxide 29
BUN 45 H
Creatinine 1.9 H
Glucose 108 H
Calcium 9.0
Vital Signs:
Vital Signs
Temp Pulse Resp BP Pulse Ox
98.4 F 78 16 96/57 93
06/24/24 07:25 06/24/24 08:14 06/24/24 07:54 06/24/24 08:14 06/24/24 07:54
I&O
06/23/24 06/24/24 06/25/24
06:59 06:59 06:59
Intake Total 960 / 960
Balance 960 / 960
Review of Systems
-
Constitutional: Denies Fever or Fatigue
EENT: Denies Blurry Vision
Respiratory: Denies Cough
Cardiac: Reports Chest Pain; Denies Palpitations or Syncope
Abdomen/GI: Denies Abdominal Pain, Nausea, Vomiting, Diarrhea or Constipated
Musculoskeletal: Reports Joint Pain
Physical Exam
-
Respiratory: Decreased Breath Sounds (b/l)
Cardiac: Regular Rhythm, S1/S2 and Irregular Rhythm
GI: Soft and Nontender
Musculoskeletal: Edema, Right Lower Extrem and Edema, Left Lower Extrem
Neuro: Awake and Alert
Data Reviewed
-
Medical Tests (Nuc Med, Echo etc): Image personally visualized and interpreted and Discussed with Physician
Labs: Labs Reviewed by me and Discussed with Physician
--- NOTE | 2024-06-24 10:57 | W.DCSUMMARY ---
Addendum entered and electronically signed by Jan Bedoya MD 06/24/24 14:57:
Read, reviewed, and agree. See same day progress note for additional details.
Original Note:
Discharge Summary
Discharge Data
Date of Admission: 06/21/24
Date of Discharge: 06/24/24
-
Pending Results: No
Hospital Course
Discharging Physician : Jan Watson
Disposition : Home
Primary care physician : Dr. Dago Short
Principal Discharge diagnosis : Status post day 2 for PCI of left main anterior descending artery
Chronic Discharge diagnosis : New onset heart failure with reduced ejection fraction of 25%, COPD without oxygen dependence, normocytic anemia, CKD stage IV, constipation, hypertension, hyperlipidemia, depression, rheumatoid arthritis
Hospital Course : Patient is an 83-year-old female, full code, postoperative day 2 from having a stent placed in the left anterior descending artery. She was admitted to [facility] with complaints of new onset dyspnea on exertion, dated
transthoracic echocardiogram and found ejection fraction of 25, she then underwent a cath which showed severe central regurgitation, right coronary stenosis and left main severe disease. She then had a stent placed in the left main artery
[facility]. Patient was then placed on DAPT with aspirin 81, ticagrelor and atorvastatin. Lasix is discontinued due to the patient's kidney function and she is only on fluid restriction. Cardiology is planning to see her outpatient to
get RCA stent placed. Repeat TTE after 3 months of GDMT/revascularization. Check CBC/BMP in 1 week.
Heart failure with reduced ejection fraction�follow daily weight, ins and outs, fluid restriction, 2 g sodium diet, trend creatinine, keep potassium more than 4 and magnesium more than 2
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
CKD stage IV-trend BMP and get BMP in 1 week
Hypertension�continue losartan
Hyperlipidemia�continue atorvastatin
Depression�continue Paxil bupropion and trazodone
Important imaging findings :
Procedure findings :
Catheterization report 06/23/2024:
-CONCLUSIONS:
1. 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
2. Left heart catheterization with normal LV filling pressure and no aortic stenosis.
3. Coronary angiography demonstrates high grade ostial-proximal left main disease with non-obstructive disease in the remainder of the left coronary system and severe ostial RCA disease evidenced by severe catheter dampening on engagement.
4. Successful IVUS-guided and optimized PCI of the left main with placement of a 4.0x15 mm [place]ain [place] TASIA post-dilated to high pressure with a 4.5 mm NC balloon throughout and 5.0 mm NC balloon ostially.
RECOMMENDATIONS:
1. Expectant management after cardiac catheterization via right approach.
2. Post-cath fluid resuscitation with 500 cc IVF.
3. DAPT with ASA/ticagrelor for 1 year.
4. GDMT for HFrEF
5. PRN diuresis
6. Given severe ostial RCA disease and CKD, will stage intervention for either this admission or outpatient pending course.
7. Will need re-evaluation of LVEF and mitral regurgitation after 3 months of revasc and optimal medical therapy
Discharge Plan
-
Patient Disposition: Home (Routine Discharge)
Discharge Diagnosis/Procedures: Coronary Artery disease s/p Left main artery PCI, Heart failure with reduced ejection fraction of 25%, Chronic obstructive pulmonary disease, Chronic Kidney disease stage IV, Hypertension, Hyperlipidemia, depression
Condition: Fair
Diet: Low Cholesterol and 2 Gram Sodium
Additional Diets: fluid restict to 1200cc/day
Activity: No strenuous activity
Driving Restrictions: Not until seen by your Dr
Bathing Restrictions: None
Blood Work: BMP, CBC on Wednesday 06/27, script from PCP- results to Dr. Nieto & Dr. Short
Other Services: PT and Cardiac Rehab
Specialty Instructions: Weigh Daily- Call MD for wt gain/loss 3 lbs overnight/5 lbs in 1 week
Activity Restrictions/Additional Instructions:
Staged cath for Right Coronary artery- Jul 29 at [facility] with Dr. Nieto- his office will call with instructions and information. The computer lab assistant will call the day before with instructions and arrival time.
Please take aspirin and brilinta the morning of the procedure.
CBC and BMP with Primary care provider in 1 week.
Instructions: *[facility] Heart Failure Instructions
Stand Alone Forms: DC Instructions- Cath/EP Lab
Referrals:
[facility] Nurse [Outside]
Mery Bucio CRNP [Specified Professional Personl] - 07/21/24 9:20 am (Cardiology followup appointment)
Dago Short DO [Family Provider] - in less than 1 week
Cedrick Nieto MD [Active] - 08/18/24 1:00 pm (Cardiology followup )
Prescriptions:
New
Brilinta 90 mg Tablet
90 mg PO BID Qty: 180 3RF
Continued
bupropion HCl 75 mg Tablet
75 mg PO BID
aspirin 81 mg Tablet,Chewable
81 mg PO DAILY
fluticasone furoate-vilanterol [Breo Ellipta] 100-25 mcg/dose Blister With Device
1 inh INHALATION DAILY
paroxetine HCl 30 mg Tablet
30 mg PO DAILY
Anoro Ellipta 62.5-25 mcg/actuation Blister With Device
1 inh INHALATION DAILY
atorvastatin [Lipitor] 40 mg Tablet
40 mg PO HS Qty: 30 0RF
trazodone 100 mg Tablet
100 mg PO HS Qty: 30 0RF
losartan 25 mg Tablet
12.5 mg PO BID Qty: 30 0RF
metoprolol succinate [Toprol XL] 25 mg Tablet Extended Release 24 Hr
25 mg PO BID Qty: 30 0RF
methotrexate 2.5 mg/mL Solution
2.5 mg PO QWEEK Qty: 30 0RF
Discontinued
furosemide [Lasix] 20 mg Tablet
20 mg PO BID
Discharge Orders:
Discharge Patient (As Directed); Ordered 06/24/24
Ordered By: Anthony Escoto
Care Plan Goals
Care Plan Goals:
Problem: Readiness for enhanced knowledge related to diagnosis and treatment plan
Goal: Understand your diagnosis and treatment plan needs, including medications if applicable.
Instructions: Know your diagnosis, underlying causes and treatment plan options, including medications if applicable. Consult with your health care team to learn about your diagnosis and treatment plan, including medications if applicable.
Discharge Date and Time
Print Language: MACEDONIAN
[2024-06-24 11:25] VITALS: BP 99/57
--- NOTE | 2024-06-24 11:32 | W.PN.CD ---
Today's Communication / Plan
-
doing well
discharge today
labs sunday to monitor renal function
outpatient PCI to RCA
outpatient GDMT titration
Impression / Plan
-
This is a 83 year old woman with CKD, COPD, HTN, HLD, ?DM, RA, prior CVA, who presented with new heart failure, severely reduced EF with severe MR, and NSTEMI, found to have severe ostial LM disease and moderate ostial RCA disease. Now status post
PCI to the LM 06/23/24.
# CAD s/p LM PCI
- ticag/asa for 1 year
- high intensity statin for goal LDL<55
- metop
- renal function stable today and euvolemic on exam, will check BMP sunday
- plan for staged PCi to RCA
# HFrEF
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
- cont. metop/losartan at current doses today, given concern for renal function post-cath and low blood pressures here, will titrate GDMT further as outpatient
# severe MR
- central, likely combination fo type III and type I
- will repeat TTE after 3 months of GDMT/revasc and consider AKIN workup if still severe/symptomatic
Subjective: feeling well post-PCI; family updated; plan for discharge with labs sunday to monitor renal function
Physical Exam
Vital Signs/Labs
Vital Signs
Temp Pulse Resp BP Pulse Ox
36.6 C 78 16 96/57 94
06/24/24 11:27 06/24/24 08:14 06/24/24 11:27 06/24/24 08:14 06/24/24 11:27
06/23/24 06/24/24 06/25/24
06:59 06:59 06:59
Actual Weight 50 kg 50.8 kg
06/24/24 04:22
06/24/24 04:22
Magnesium 2.2 mg/dl (1.6-2.3) 06/22/24 03:22
Triglycerides Cancelled 06/23/24 05:53
LDL Cholesterol, Calc Cancelled 06/23/24 05:53
VLDL Cholesterol, Calc Cancelled 06/23/24 05:53
HDL Cholesterol Cancelled 06/23/24 05:53
Physical Exam
Constitutional: No acute distress
Cardiovascular: Rhythm & rate is regular
Respiratory: Respiratory effort normal and Lungs clear to auscul.
Neuro/Psych: AO x 3
Data Reviewed
-
Date of Service: June 24, 2024
Medical Decision Making: Reviewed Test Results and Review of Case with other Provider
Labs: Labs Reviewed by me
--- NOTE | 2024-06-24 11:34 | PTCARENOTE ---
Pt assisted to BR this morning, standby assist with RW, sanchez well, denies pain. Sitting OOB in chair presently, no complaints.
--- NOTE | 2024-06-24 12:36 | CM ---
Addendum entered by Janina Winters 06/24/24 14:53:
Received message from resident regarding Cardiac Rehab. and [facility] Services. Telephone call to Cardiac Rehab. who states they saw the patient yesterday and provided information of outpatient Cardiac Rehab. Yesterday. Information as in her discharge
folder. Met with Mrs. Lux abd her daughter and they are agreeable to [facility]NA referral. Telephone call to [facility] to make the referral. Sent the referral. The discharge plan is to go to her daughter's home with [facility]
Services when medically stable.
Original Note:
Reviewed chart. Met with Mrs. Lux and her daughter to review discharge plans. Telephone call to [facility] to check on status of Brilinta 90 mg po bid. [facility] states they received the script and they will have her script
filled for her this afternoon. We reviewed one month free coupon . It is in her red discharge folder. She is planning on going to stay with her daughter when she goes home. Her daughter has a first floor set-up. She does not have any DME in the
home. She has a prescription plan and uses [facility]. Medical work-up in progress. The discharge plan is to return home with her daughter when medically stable.
--- NOTE | 2024-06-24 12:59 | W.PN.UPDATE ---
Update Note
Progress Note Update
CDI INQUIRY:
Acute HFrEF with EF of 25%:
- EF of 25%
- Continue on metoprolol, losartan
- Follow daily weight, I's and O's, fluid restriction, 2 g sodium diet
- Trend creatinine
- Keep K more than 4 and magnesium more than 2
[2024-06-24 14:16] VITALS: BP 107/85
[2024-06-24 14:27] VITALS: BP 151/77
[2024-06-24 14:32] VITALS: BP 107/77; BP 151/77
--- NOTE | 2024-06-25 12:03 | W.HF.CON ---
Heart Failure
- LV Function
Left ventricular function study result: LV Ejection fraction </= 35%
Ejection Fraction Percentage: 25
- ARNI
Patient already on ARNI: No
Heart Failure ARNI Contraindication: Acute Renal Failure, Hypotension
- ACEI/ARB
Patient already on ACEI/ARB: Yes
- Beta Wan
Patient already on Evidence Based Beta Wan: Yes
- Mineralocorticord Receptor Antagonist
Patient already on MRA: No
Heart Failure MRA Contraindication: Acute Renal Insufficiency, Hypotension
- SGLT-2 Inhibitor
Patient already on SGLT-2 Inhibitor: No
Heart Failure SGLT-2 Inhibitor Contraindication: eGFR < 25
- NYHA CHF Classification
NYHA CHF Classification Level: Class III - Symptoms w/ min exertion, interferes w/ nml daily activity
- ACC/AHA Stage
ACC/AHA Stage: Stage C: Symptomatic Heart Failure
== END 2024-06-24 15:20 | disposition home or self-care (01) | DRG 321 ==
LOC: IVU 14:48
PROVIDERS: Registered Nurse; ADMITTING PHYSICIAN Hospitalist; ATTENDING PHYSICIAN Internal Medicine; CONSULT PHYSICIAN Thoracic Surgery (Cardiothoracic Vascular Surgery); FAMILY PHYSICIAN Family Medicine; OTHER PHYSICIAN Student in an Organized Health Care Education/Training Program
PROC: B2111ZZ Fluoroscopy of Multiple Coronary Arteries using Low Osmolar Contrast (ICD-10-PCS; 2024-06-23)
PROC: 027034Z Dilation of Coronary Artery, One Artery with Drug-eluting Intraluminal Device, Percutaneous Approach (ICD-10-PCS; 2024-06-23)
PROC: B240ZZ3 Ultrasonography of Single Coronary Artery, Intravascular (ICD-10-PCS; 2024-06-23)
PROC: 4A023N8 Measurement of Cardiac Sampling and Pressure, Bilateral, Percutaneous Approach (ICD-10-PCS; 2024-06-23)
DX: I21.4 Non-ST elevation (NSTEMI) myocardial infarction (principal); I50.21 Acute systolic (congestive) heart failure; J96.01 Acute respiratory failure with hypoxia; I13.0 Hypertensive heart and chronic kidney disease with heart failure and stage 1 through stage 4 chronic kidney disease, or unspecified chronic kidney disease; N18.4 Chronic kidney disease, stage 4 (severe); I42.9 Cardiomyopathy, unspecified; I25.10 Atherosclerotic heart disease of native coronary artery without angina pectoris; I34.0 Nonrheumatic mitral (valve) insufficiency; I73.9 Peripheral vascular disease, unspecified; I71.40 Abdominal aortic aneurysm, without rupture, unspecified; F41.9 Anxiety disorder, unspecified; F32.A Depression, unspecified; J44.9 Chronic obstructive pulmonary disease, unspecified; Z87.891 Personal history of nicotine dependence; Z90.49 Acquired absence of other specified parts of digestive tract; R54 Age-related physical debility; E78.00 Pure hypercholesterolemia, unspecified; Z79.631 Long term (current) use of antimetabolite agent; M06.9 Rheumatoid arthritis, unspecified; Z86.73 Personal history of transient ischemic attack (TIA), and cerebral infarction without residual deficits; Z79.899 Other long term (current) drug therapy; I27.20 Pulmonary hypertension, unspecified; Z79.51 Long term (current) use of inhaled steroids
CPT/HCPCS: 71045; 80048; 83036; 83735; 85025; 85027; 85347; 86850; 86900; 86901; 87070; 92978; 93005; 93460; 94640; 97163; C1725; C1753; C1769; C1874; C1894; C9600; Q9967

== ENCOUNTER 2024-07-29 09:38 | Day surgery (SDC) | payer MEDICARE, SELFPAY ==
[2024-07-29] VITALS (16 sets, daily range): BP systolic 129–175; BP diastolic 70–99
[2024-07-29] MEDS: NSS 150 ML IV (10:42)
[2024-07-29 12:08] LABS: ACT-LR - POC 245 Seconds (116-155)
[2024-07-29 12:24] LABS: ACT-LR - POC 282 Seconds (116-155)
--- NOTE | 2024-07-29 15:08 | PTCARENOTE ---
made director of software engineering corrie thorne aware of pts elevated bp 167/78 . pt did take all her am meds this morning.. no new treatment at this time ,will continue to monitor.
[2024-07-29] MEDS: NSS 1000 IV (16:04)
--- NOTE | 2024-07-29 16:05 | ITS.CL.PN ---
[facility] - Procedure Note
Procedure
Procedure Note:
CARDIAC CATHETERIZATION REPORT
Date of Procedure: 07/29/2024
Referring: Dr. Christopher Duval MD
Indication: NSTEMI, severe LM disease, acute systolic heart failure
PROCEDURE(S)
1. left heart catheterization
2. coronary angiography
3. IVUS RCA
4. PCI with stent to RCA
5. moderate sedation 70 minutes
6. ultrasound guided vascular access of right radial artery
ACCESS: 6F right radial artery (closure: radial band)
CATHETERS
1. 6F JR 4 guide
2. 6F JL3.5 diagnostic
MODERATE SEDATION: 70 minutes of moderate sedation was utilized. An independent director of medical services was present to assist with and help manage the patient's level of consciousness and physiologic status.
ULTRASOUND GUIDED VASCULAR ACCESS (right radial artery): Ultrasound was utilized for vascular access. The vessel was visualized under ultrasound and noted to be patent. An image of the vessel was stored permanently in the patient's medical record.
Under direct ultrasound guidance, vascular access was obtained using a modified Seldinger technique and a 6 Portuguese sheath was placed.
HEMODYNAMIC DATA
LV 141/9 (EDP 12) mmHg
AO 147/87 (mean 111) mmHg
CORONARY ANGIOGRAPHY
Dominance: right
LM: large vessel with a patent ostial stent. There is noted to be a small pseudoaneurysm emanating from the inferior aspect of the proximal LAD in a segment of vessel fully covered by stent. There is slow contrast washing from the pseudoaneurysm.
There is no evidence of contrast extravasation into the pericardium. The pseudoaneurysm was not present on prior completion angiography taken 1 month ago
LAD: Large vessel giving rise to three small diagonal branches and wrapping around the apex. There are trivial luminal irregularities.
LCx: Large vessel giving rise to a single branching large marginal.
RCA: Large vessel giving rise to a small RPDA and large RPL system.
IVUS-guided PCI to the RCA
Heparin was used to maintain ACT greater than 300. The right coronary artery was engaged with a 6 [place] JR4 guide catheter and a Runthrough coronary wire placed in the distal RPDA. A second floating wire was placed in the right coronary cusp.
Initial lesion preparation was performed with a 2.0 x 12 semicompliant balloon with full expansion. IVUS was performed demonstrating a 4.0 mm reference vessel diameter and concentric calcification at the ostium. A 3.5 x 12 mm noncompliant balloon
was inflated across the ostium at nominal pressure and verified to have full expansion in 2 orthogonal views. A 4.0 x 12 mm [place] drug-eluting stent was delivered and deployed with ostial placement followed by flaring with the stent
delivery balloon at high pressure. Post dilation was then performed with a 4.5 x 12 mm NC balloon taken to high-pressure. Final angiographic result was excellent. IVUS demonstrated full stent expansion, no distal edge dissection, and appropriate
ostial placement. Diagnostic angiography of the left coronary system was then performed to assess the previously placed ostial left main stent as described. The wire and guide were removed and a TR band placed.
RADIATION: dose 377 mGy; DAP 23.3 Gy*cm2; fluoroscopy time 16.9 min
CONCLUSIONS
1. Coronary angiography demonstrates obstructive coronary artery disease in a right dominant system as described, with ostial RCA stenosis and small pseudoaneurysm at the site of the previously placed left main stent.
2. Normal LV filling pressure and no aortic stenosis
3. Successful IVUS-guided PCI of the ostial RCA with placement of 4.0 x 12 mm [place] drug-eluting stent flared with a 4.5 mm NC balloon
RECOMMENDATIONS
1. expectant management after cardiac catheterization via right radial approach
2. continue DAPT with aspirin and ticagrelor
3. consideration of interval imaging of left main pseudoaneurysm
4. labs in 1 week to trend creatinine
5. further titration of GDMT for heart failure as an outpatient and repeat echocardiography to assess EF recovery and mitral regurgitation severity
Copy to: Dr. Dago Short, (primary care physician)
Signed: Cedrick Nieto MD, PhD
--- NOTE | 2024-07-29 17:44 | W.PN.UPDATE ---
Update Note
Progress Note Update
83 yo WF s/p PCI RCA (same day). She denies cp, sob, sanchez diet, voiding, amb w/o dizziness, EKG SR, R rad site c/d/i. She will continue DAPT ASA/Brilinta. She will have f/u lipids and CMP in 2 weeks with CKD. Cardiac rehab c/s. Activity restrictions
reviewed. She will f/u Dr. Nieto in 1 mo. She is for d/c home after 530p.
CONCLUSIONS
1. Coronary angiography demonstrates obstructive coronary artery disease in a right dominant system as described, with ostial RCA stenosis and small pseudoaneurysm at the site of the previously placed left main stent.
2. Normal LV filling pressure and no aortic stenosis
3. Successful IVUS-guided PCI of the ostial RCA with placement of 4.0 x 12 mm Novel[place] drug-eluting stent flared with a 4.5 mm NC balloon
== END 2024-07-29 17:29 | disposition home or self-care (01) ==
LOC: CATH 09:38
PROVIDERS: ATTENDING PHYSICIAN Student in an Organized Health Care Education/Training Program; FAMILY PHYSICIAN Family Medicine
DX: I21.4 Non-ST elevation (NSTEMI) myocardial infarction (principal); I25.10 Atherosclerotic heart disease of native coronary artery without angina pectoris; I11.0 Hypertensive heart disease with heart failure; I50.21 Acute systolic (congestive) heart failure; Z95.5 Presence of coronary angioplasty implant and graft
CPT/HCPCS: 92978; 99152; 99153; 76937; 85347; 93005; 93458; C1725; C1753; C1874; C1894; C9600; Q9967

== ENCOUNTER → 2024-11-17 13:31 | Outpatient (REF) | payer MEDICARE, SELFPAY | LOC: RCS 13:31 | PROVIDERS: ATTENDING PHYSICIAN Student in an Organized Health Care Education/Training Program; FAMILY PHYSICIAN Family Medicine | DX: I34.0 Nonrheumatic mitral (valve) insufficiency (principal); I25.5 Ischemic cardiomyopathy | CPT/HCPCS: 93306 ==